=== PATIENT | male | born 1965 | race Caucasian/White ===

== ENCOUNTER 2016-12-27 18:22 | Inpatient (IN) | payer BC ==
[~2016-12-27] VITALS: Ht 6 cm; Wt 42.9 kg
--- NOTE | ~2016-12-27 | EKG ---
[address] [address] ELECTROCARDIOGRAM REPORT Name: DELMY REED Room #: 170-1 ADM IN M.R.#: [id number] Admission: 12/27/16 Attend Phys: Vijay Germain MD Discharge: Date of : 63 Report #: [id number] THIS REPORT FOR: //name// [facility] ED Test Date: 2016-12-27 Test Time: 18:51:15 Pat Name: DELMY REED Department: Room: 170 Gender: M Public Information Officer: [id number] : 1965 Requested By: Gigi Milligan Order Number: [id number] MD: Tristan Moreno Measurements Intervals [place] Rate: 66 P: 3 NV: 129 QRS: 6 QRSD: 76 T: 33 QT: 419 QTc: 439 Interpretive Statements Sinus rhythm Borderline low voltage, extremity leads Compared to ECG 09/01/2015 05:35:54 T-wave abnormality no longer present Electronically Signed On 12-27-2016 22:43:16 CDT by Tristan Moreno [email or web address] <ELECTRONICALLY SIGNED> By: Tristan Moreno MD 12/27/16 2243 50 50 Tristan Moreno MD /EPI
[~2016-12-27 18:22] MED LIST: ALDACTONE25 MG; ASPIR 8181 M1 PO; IRON325 PO; LASIX 40 MG TAB40 M2 PO; LASIX 40 MG TAB40 MG; LEVEMIR SUBQ; NOVOLOG100 UNIT/1 SUBQ; OXYCODONE HCL 55 MG PO; PLAVIX 75 MG TA75 M1 PO; POTASSIUM20; SPIRONOLACTONE100 M1 PO
[2016-12-27 18:27] VITALS: BP 90/59
[2016-12-27] MEDS ORDERED: NOVOLOG100 UNIT/M SUBQ (19:01)
[2016-12-27 19:51] LABS: HEMATOCRIT 22.6 % (42.0-52.0); HEMOGLOBIN 7.3 gm/dL (14.0-18.0); MCH 22.7 pg (26.0-34.0); MCHC 32.2 g/dL (28.0-37.0); MCV 70.6 fL (80.0-100.0); PLATELET COUNT 255 thou/uL (150-400); RDW 16.7 % (10.5-14.5)
[2016-12-27 19:55] LABS: MANUAL DIFF YES
[2016-12-27 20:00] LABS: ANION GAP 8 mmol/L (7-16); BUN 12 mg/dL (7-18); CALCIUM 7.6 mg/dL (8.5-10.1); CHLORIDE 87 mmol/L (98-107); CO2 21 mmol/L (21-32); CREATININE 0.9 mg/dL (0.7-1.3); GLUCOSE 130 mg/dL (74-106); POTASSIUM 3.8 mmol/L (3.5-5.1)
[2016-12-27 20:10] LABS: SODIUM 116 mmol/L (136-145); TROPONIN-I < 0.04 ng/mL (<0.04-0.07)
[2016-12-27 20:20] LABS: APTT 26.7 Seconds (24.5-32.8); INR 1.2; PROTIME 12.5 Seconds (9.3-11.4)
[2016-12-27 21:08] LABS: ABSOLUTE NEUTROPHILS 3.4 thou/uL (1.4-8.2); ANISOCYTOSIS 2+; HYPOCHROMASIA 2+; MICROCYTES 1+
[2016-12-27 22:48] VITALS: BP 90/57
[2016-12-27 23:39] VITALS: BP 91/55
[2016-12-28] VITALS (7 sets, daily range): BP systolic 83–93; BP diastolic 53–62
[2016-12-28 06:34] LABS: HEMOGLOBIN 6.6 gm/dL (14.0-18.0); RDW 16.5 % (10.5-14.5)
[2016-12-28 06:38] LABS: HEMATOCRIT 20.2 % (42.0-52.0); MCHC 32.7 g/dL (28.0-37.0); MCV 70.4 fL (80.0-100.0); RBC 2.87 mil/uL (4.50-6.00); WBC 3.7 thou/uL (4.0-11.0)
[2016-12-28 06:45] LABS: CALCIUM 7.2 mg/dL (8.5-10.1); CREATININE 0.7 mg/dL (0.7-1.3); POTASSIUM 3.9 mmol/L (3.5-5.1)
[2016-12-28 06:57] LABS: ALBUMIN 2.7 g/dL (3.4-5.0); DIRECT BILIRUBIN 0.3 mg/dL (<0.1-0.3); TOTAL BILIRUBIN 0.6 mg/dL (<0.1-1.0); TOTAL PROTEIN 5.4 g/dL (6.4-8.2)
[2016-12-28] MEDS ORDERED: PROTONIX40 M1 PO (11:19)
[2016-12-28] MEDS ORDERED: IRON325 PO (11:33)
[2016-12-28] MEDS ORDERED: SPIRONOLACTONE100 M1 PO (11:33)
[2016-12-28] MEDS ORDERED: LASIX 40 MG TAB40 M2 PO (11:33)
[2016-12-28 14:51] LABS: HEMATOCRIT 24.5 % (42.0-52.0); HEMOGLOBIN 7.9 gm/dL (14.0-18.0)
== END 2016-12-28 15:17 | disposition home or self-care (01) | DRG 641 ==
LOC: ER 18:22 → 2N 21:06 → EROBS 21:06 → 2N 23:18
PROVIDERS: Emergency Medicine; Internal Medicine; Nurse Practitioner Acute Care
PROC: 30233N1 Transfusion of Nonautologous Red Blood Cells into Peripheral Vein, Percutaneous Approach (ICD-10-PCS; principal; 2016-12-28)
DX: E87.1 Hypo-osmolality and hyponatremia (principal); K70.31 Alcoholic cirrhosis of liver with ascites; I95.9 Hypotension, unspecified; D50.9 Iron deficiency anemia, unspecified; E11.9 Type 2 diabetes mellitus without complications; F17.210 Nicotine dependence, cigarettes, uncomplicated; Z79.4 Long term (current) use of insulin; Z79.82 Long term (current) use of aspirin; Z79.899 Other long term (current) drug therapy; Z80.1 Family history of malignant neoplasm of trachea, bronchus and lung
CPT/HCPCS: 10081

== ENCOUNTER 2020-04-18 16:23 | Inpatient (IN) | payer BC ==
[~2020-04-18] VITALS: Ht 165.1 cm; Wt 64.7 kg
[~2020-04-18 16:23] MED LIST changes: +NOVOLOG100 UNIT/M SUBQ; +PROTONIX40 M1 PO
[2020-04-18 19:37] LABS: ABSOLUTE NEUTROPHILS 4.5 thou/uL (1.4-8.2); EOSINOPHILS 0.7 % (0.0-3.0); HEMATOCRIT 39.5 % (42.0-52.0); HEMOGLOBIN 13.3 gm/dL (14.0-18.0); LYMPHOCYTES 11.3 % (24.0-44.0); MCH 33.5 pg (26.0-34.0); MCHC 33.7 g/dL (28.0-37.0); MCV 99.4 fL (80.0-100.0); MONOCYTES 9.2 % (1.0-8.0); PLATELET COUNT 81 thou/uL (150-400); POLYS 77.8 % (36.0-66.0); RBC 3.97 mil/uL (4.50-6.00); RDW 14.3 % (10.5-14.5); WBC 5.8 thou/uL (4.0-11.0)
[2020-04-18 19:41] LABS: CALCIUM 9.7 mg/dL (8.5-10.1)
[2020-04-18 19:48] LABS: INR 1.2; PROTIME 12.5 Seconds (9.3-11.4)
[2020-04-18 19:49] LABS: ALBUMIN 3.1 g/dL (3.4-5.0); TOTAL BILIRUBIN 1.5 mg/dL (0.2-1.0); TOTAL PROTEIN 6.6 g/dL (6.4-8.2)
[2020-04-18] MEDS ORDERED: LEVEMIR100 UNIT/2 SUBQ (20:11)
[2020-04-18 23:16] LABS: URINE BILIRUBIN NEGATIVE (Negative); URINE BLOOD NEGATIVE (Negative); URINE CLARITY CLEAR; URINE COLOR YELLOW; URINE GLUCOSE-RANDOM* TRACE (Negative); URINE KETONES NEGATIVE (Negative); URINE LEUKOCYTES-REFLEX NEGATIVE (Negative); URINE NITRITE-REFLEX NEGATIVE (Negative); URINE PROTEIN (DIPSTICK) NEGATIVE (Negative); URINE SPECIFIC GRAVITY <= 1.005 (1.005-1.035); URINE UROBILINOGEN 0.2 E.U./dl (0.2-1.0)
[2020-04-18 23:59] VITALS: BP 110/65
[2020-04-19 00:29] VITALS: BP 134/85
[2020-04-19 01:01] VITALS: BP 141/91
[2020-04-19 03:42] VITALS: BP 120/81
--- NOTE | 2020-04-19 05:21 | NUR ---
Pt admitted from ED approx 0040 with Lower GI bleed A/OX4,VSS. Up ad jesús,encouraged to call for help as needed. C/o tenderness to abd,ascites,slightly jaundiced. NSR on telemetry. Denies taking any meds at home other than insulins. resting quietly at this time w/o distress,will continue to monitor pt.
[2020-04-19 05:40] LABS: HEMATOCRIT 33.9 % (42.0-52.0); HEMOGLOBIN 11.4 gm/dL (14.0-18.0); MCH 33.4 pg (26.0-34.0); MCHC 33.6 g/dL (28.0-37.0); MCV 99.5 fL (80.0-100.0); RBC 3.41 mil/uL (4.50-6.00); RDW 14.5 % (10.5-14.5)
[2020-04-19 06:04] LABS: CALCIUM 8.4 mg/dL (8.5-10.1); CREATININE 1.1 mg/dL (0.7-1.3); POTASSIUM 4.1 mmol/L (3.5-5.1)
[2020-04-19 08:12] VITALS: BP 114/72
[2020-04-19 12:04] LABS: HEMATOCRIT 36.5 % (42.0-52.0)
[2020-04-19 13:57] VITALS: BP 143/93
--- NOTE | 2020-04-19 19:22 | NUR ---
Assumed pt care in the am, VS stable. Blood sugar checks done, informed MD regarding elevated blood sugars. Was NPO and went down for am EGD this am, complained of chest, throat and flank pain when he got up to the unit, Dr. Chung medications given. Soft diet restarted, refused to eat stating "this might nit be gluten free". POC followed, partial relief is noted, endorsed to the night nurse. Pt refused meals.
[2020-04-19 19:40] VITALS: BP 148/87
--- NOTE | 2020-04-20 04:31 | NUR ---
Assumed pt care at 1900. A/OX4,VSS. C/o chest non cardiac pain/sorethroat from EGD. Order for lozenges obtained and administered with relief reported. Pt reported by operations lead to have an insulin pen and self administered insulin,rewriter explained to pt why he can't keep medication in the room for risk of double dosings and informed pt medication has to be taken to the pharmacy. SR/SB on telemetry. Up ad jesús,calls as needed for help.Resting w/o any distress noted.Will continue to monitor pt.
--- NOTE | 2020-04-20 07:18 | EKG ---
[address] [address] ELECTROCARDIOGRAM REPORT Name: DELMY REED Room #: 454- ADM IN M.R.#: [id number] Admission: 04/18/20 Attend Phys: Vijay Germain MD Discharge: Date of : 63 Report #: [id number] [facility] ED Test Date: 2020-04-18 Test Time: 19:46:54 Pat Name: DELMY REED Department: Room: 454 P Gender: M Residential Mortgage Underwriter: JCHAIMANJU : 1965 Requested By: Kelly Linn Order Number: [id number] MD: Kingsley Collado Measurements Intervals [place] Rate: 78 P: -2 VT: 125 QRS: -35 QRSD: 82 T: -8 QT: 419 QTc: 478 Interpretive Statements Sinus rhythm Left axis deviation Borderline T abnormalities, inferior leads Borderline prolonged QT interval Compared to ECG 12/27/2016 18:51:15 Left-axis deviation now present T-wave abnormality now present Electronically Signed On 04-20-2020 7:18:17 REPRODUCTIVE SURGEON by Kingsley Collado [email or web address] <ELECTRONICALLY SIGNED> By: Kingsley Collado MD, FACC 04/20/20 0718 45 45 Kingsley Collado MD, [facility] /EPI
--- NOTE | 2020-04-20 07:19 | EKG ---
[address] [address] ELECTROCARDIOGRAM REPORT Name: CARMENPapitoDELMY Room #: 454- ADM IN M.R.#: [id number] Admission: 04/18/20 Attend Phys: Vijay Germain MD Discharge: Date of : 63 Report #: [id number] [facility] Test Date: 2020-04-19 Test Time: 15:00:09 Pat Name: DELMY REED Department: Room: 454 P Gender: M Microbiology Professor: Papito DALLAS : 1965 Requested By: Dona Chung Order Number: [id number] MD: Kingsley Collado Measurements Intervals [place] Rate: 77 P: -30 ND: 131 QRS: -37 QRSD: 86 T: -37 QT: 423 QTc: 479 Interpretive Statements Sinus rhythm Compared to ECG 12/27/2016 18:51:15 No significant change Electronically Signed On 04-20-2020 7:19:00 GENERAL MERCHANDISE MANAGER by Kingsley Collado [email or web address] <ELECTRONICALLY SIGNED> By: Kingsley Collado MD, [facility] 04/20/20 0719 1500 1500 Kingsley Collado MD, FACC /EPI
[2020-04-20 08:00] VITALS: BP 125/69
[2020-04-20 10:38] LABS: HEMATOCRIT 33.2 % (42.0-52.0); HEMOGLOBIN 10.9 gm/dL (14.0-18.0)
[2020-04-20] MEDS ORDERED: CARAFATE 11 GM/10 M1 PO (13:51)
[2020-04-20] MEDS ORDERED: NADOLOL 20 MG T20 M1 PER TUBE (13:51)
[2020-04-20] MEDS ORDERED: PROTONIX40 M2 PO (13:51)
--- NOTE | 2020-04-20 14:41 | NUR ---
PT ADMITTED RELATED TO LOWER GI BLEED. CM REVIEWED CHART AND SPOKE WITH CARE TEAM. CM MET WITH PT AT BEDSIDE THIS DAY. PT APPEARED TO BE A&O X4. CM ROLE INTRODUCED. PT INDICATED THAT HE RESIDES ALONE IN A HOUSE WITH 10 STEPS TO ENTER THROUGH THE GARAGE. PT INDICATED THAT HE IS INDEPDENENT WITH GAIT AND ADLS PHYSICAL FITNESS TRAINER. PT INDICATED NO DME. PT IS EMPLOYED IN THE COMMUNITY. PT'S PCP IS DR. PRISCILLA TORRES. PT NOT INTERESTED IN RESOURCES ON AUBSTANCE ABUSE PROGRAMING AT THIS TIME. PT HAD EGD YESTERDAY. CARE TEAM INDICATED THAT PT MAY BE MEDICALLY STABLE TO DC HOME TODAY WITH NO NEEDS IF HE TOLERATES DIET. NO DC NEEDS ANTICPATED.
[2020-04-20 16:31] VITALS: BP 114/65
[2020-04-20 19:56] VITALS: BP 121/71
--- NOTE | 2020-04-20 19:58 | NUR ---
Assumed pt care this am, VS stable blood sugar check done medications given as per emar. Diet is to advance as tolerated, pain is managed with medications partial relief is noted. Abdomen still distended, jaundince present MD aware. POC followed with no signs or verbalizations of distress noted. Endorsed to the night nurse.
--- NOTE | 2020-04-21 03:55 | NUR ---
ASSUMED CARE OF PT AT 1900. PT IS A/O X4 AND IS UP AD CAILIN TO THE BR. USES A URINAL AT THE BEDSIDE. ROOM AIR, SR/SB ON THE MONITOR. ADVANCED DIET IS IN EFFECT AND WILL BE EATING A CARB CONTROL DIET THIS AM FOR BREAKFAST. SLIDING SCALE INSULIN GIVEN DIRECTED. BLOOD SUGAR AT HS WAS 206. DENIES ANY C/O PAIN OR DISCOMFORT. FALL PRECAUTIONS IMPLEMENTED, CALL LIGHT IS WITHIN REACH. PT IS PROGRESSING TOWARDS PLAN OF CARE GOALS. WILL CONTINUE TO MONITOR.
[2020-04-21 07:39] VITALS: BP 125/74
--- NOTE | 2020-04-21 14:38 | NUR ---
CARE TEAM INDICATED THAT PT IS TO HAVE A PARACENTESIS THIS DAY. PT MAY BE MEDICALLY STABLE TO DC HOME TOMORROW. CM TO FOLLOW INDICATED WITH DC PLANNING.
[2020-04-21 15:16] VITALS: BP 140/82
--- NOTE | 2020-04-21 15:53 | NUR ---
Assumed pt care at 7am.Pt in bed alert and oriented x4.Assessment completed. vss.Pt c/o epigastric pain rated 7/10.Pain med given am meds at breakfast with relief.Dr Chung and Eric here,order noted.Pt will be having paracenthesis in am and possible dc home if stable.Cardiac telemetry dc this am per Dr Chung.Ivf infusing as ordered.Will continue to monitor.
[2020-04-21 18:56] LABS: HEMATOCRIT 36.6 % (42.0-52.0); HEMOGLOBIN 12.1 gm/dL (14.0-18.0); MCH 33.5 pg (26.0-34.0); MCHC 33.1 g/dL (28.0-37.0); MCV 101.4 fL (80.0-100.0); RBC 3.6 mil/uL (4.50-6.00); RDW 15.1 % (10.5-14.5); WBC 3.8 thou/uL (4.0-11.0)
[2020-04-21 19:07] LABS: CALCIUM 8.6 mg/dL (8.5-10.1); CREATININE 1.5 mg/dL (0.7-1.3); POTASSIUM 4.2 mmol/L (3.5-5.1)
[2020-04-21 20:02] VITALS: BP 130/85
--- NOTE | 2020-04-22 04:07 | NUR ---
VSS-AFEBRILE. LUNGS CLEAR-ROOM AIR. NPO AFTER MINIGHT FOR PARACENTESIS TODAY. C/O HEADACHE EARLY IN SHIFT, PARTIAL RELIEF NOTED WITH PO PAIN MEDICATION. CALLS APPROPRIATELY FOR ANY NEEDED ASSISTANCE.
[2020-04-22 04:48] LABS: ALBUMIN 2.6 g/dL (3.4-5.0); CALCIUM 8.3 mg/dL (8.5-10.1); CREATININE 1.3 mg/dL (0.7-1.3); POTASSIUM 4.4 mmol/L (3.5-5.1); TOTAL BILIRUBIN 1.2 mg/dL (0.2-1.0); TOTAL PROTEIN 5.7 g/dL (6.4-8.2)
[2020-04-22 05:00] LABS: HEMATOCRIT 34.1 % (42.0-52.0); HEMOGLOBIN 11.3 gm/dL (14.0-18.0); MCH 33.7 pg (26.0-34.0); MCHC 33.2 g/dL (28.0-37.0); MCV 101.7 fL (80.0-100.0); RBC 3.35 mil/uL (4.50-6.00); RDW 14.6 % (10.5-14.5)
[2020-04-22 08:10] VITALS: BP 139/83
[2020-04-22 08:25] VITALS: BP 139/83
[2020-04-22 11:00] VITALS: BP 143/82
--- NOTE | 2020-04-22 11:42 | NUR ---
ASSUMED CARE OF PATIENT AT SHIFT CHANGE. ASSESSMENT CHARTED. MEDICATIONS ADMINISTERED PER EMAR. VSS. PATIENT IS A&OX4 AND MAKES NEEDS KNOWN. DENIES PAIN AT THE TIME OF ASSESSMENT, VOICES DESIRE TO GO HOME. PATIENT WAS NPO FOR A PARACENTESIS HOWEVER IT WAS DETERMINED HE DID NOT NEED IT. PROVIDER SAW PATIENT AND CLEARED HIM TO DISCHARGE HOME W NO NEEDS. PATIENT HAS TRANSPORTATION AND HAS NO BARRIERS TO D/C. PATIENT VOICED NO NEEDS AT TIME OF DISCHARGE. WILL MONITOR FOR ANY CHANGES IN STATUS.
[2020-04-22] MEDS ORDERED: XIFAXAN550 MG PO (11:45)
[2020-04-22] MEDS ORDERED: LASIX 40 MG TAB40 M1 PO (11:45)
[2020-04-22] MEDS ORDERED: ALDACTONE50 MG PO (11:45)
[2020-04-22 11:49] VITALS: BP 139/83
== END 2020-04-22 12:50 | disposition home or self-care (01) | DRG 432 ==
LOC: ER 16:23 → 4W 22:53 → EROBS 22:53 → 4W 04-19 00:27
PROVIDERS: Emergency Medicine; Hospitalist; Nurse Practitioner; Nurse Practitioner Family; ADMIT Internal Medicine; ATTEND Internal Medicine
PROC: 06L38CZ Occlusion of Esophageal Vein with Extraluminal Device, Via Natural or Artificial Opening Endoscopic (ICD-10-PCS; principal; 2020-04-19)
DX: K70.31 Alcoholic cirrhosis of liver with ascites (principal); I85.11 Secondary esophageal varices with bleeding; E87.1 Hypo-osmolality and hyponatremia; E11.51 Type 2 diabetes mellitus with diabetic peripheral angiopathy without gangrene; J44.9 Chronic obstructive pulmonary disease, unspecified; F17.210 Nicotine dependence, cigarettes, uncomplicated; D69.6 Thrombocytopenia, unspecified; E11.65 Type 2 diabetes mellitus with hyperglycemia; K80.20 Calculus of gallbladder without cholecystitis without obstruction; K90.0 Celiac disease; Z20.822 Contact with and (suspected) exposure to COVID-19; Z80.1 Family history of malignant neoplasm of trachea, bronchus and lung; Z79.899 Other long term (current) drug therapy
CPT/HCPCS: 10045; 10047; 62110; 62900; 70005